=== PATIENT | female | born 1965 | race African-American/Black ===

== ENCOUNTER 2019-12-14 11:59 | Day surgery (SDC) | payer MEDICAID ==
[~2019-12-14] VITALS: Ht 157.5 cm; Wt 70.0 kg
[2019-12-14 12:34] VITALS: BP 121/77
[2019-12-14] MEDS ORDERED: ASPI-1497 PO (12:38)
[2019-12-14] MEDS ORDERED: GLYB5TAB7 PO (12:38)
[2019-12-14] MEDS ORDERED: SIMV-46 PO (12:38)
[2019-12-14] MEDS ORDERED: METF-414 PO (12:38)
[2019-12-14] MEDS ORDERED: BENA40TA9 PO (12:38)
[2019-12-14] MEDS ORDERED: ACETAZOLAMIDE SODIUM 500MG/VIAL IV ONE (13:15)
[2019-12-14 13:32] LABS: BASOPHILS % 0.7 % (0.0-2.0); EOSINOPHILS % 1.5 % (0.0-5.0); HEMATOCRIT. 39.7 % (36.0-48.0); HEMOGLOBIN. 13.6 g/dL (12.0-16.0); LYMPHOCYTES % 31.3 % (20.0-50.0); MEAN CORPUSCULAR HEMOGLOBIN 30.4 pg (28.0-32.0); MEAN CORPUSCULAR VOLUME 88.5 fL (81.0-99.0); MEAN PLATELET VOLUME 9.4 fl (7.4-10.4); MONOCYTES % 8.3 % (2.0-8.0); NEUTROPHILS % 58.2 % (40.0-76.0); PLATELET 264 x1000/uL (130-400); RED BLOOD CELL COUNT 4.49 mill/uL (4.2-5.4); RED CELL DISTRIBUTION WIDTH 14.5 % (11.6-14.6)
[2019-12-14 13:37] LABS: CHLORIDE 107 mEq/L (98-107)
[2019-12-14 13:38] LABS: PROTHROMBIN TIME 10.7 sec (9.6-11.0)
[2019-12-14] MEDS ORDERED: TRIAMCINOLONE ACETONIDE 40MG/ML 1ML VIAL ONE (13:42)
[2019-12-14] MEDS ORDERED: FENTANYL CITRATE/PF 50MCG/ML 2ML VIAL ONE (14:11)
[2019-12-14] MEDS ORDERED: MIDAZOLAM HCL 2 MG/2 ML VIAL ONE (14:11)
[2019-12-14] MEDS ORDERED: DIPHENHYDRAMINE 50MG/ML VIAL ONE (14:11)
[2019-12-14] MEDS ORDERED: SODIUM CHLORIDE 0.9% 10ML VIAL ONE ×2 (14:12→14:35)
[2019-12-14] MEDS ORDERED: CEFAZOLIN SODIUM 1000MG/VIAL ONE (14:12)
[2019-12-14] MEDS ORDERED: LIDOCAINE HCL/PF 1% 10 MG/ML 5ML VIAL ONE (14:12)
[2019-12-14] MEDS ORDERED: PROPOFOL 200MG/20ML VIAL IV ONE (14:12)
[2019-12-14] MEDS ORDERED: HYDRALAZINE 20MG/ML VIAL ONE (14:35)
[2019-12-14] MEDS ORDERED: HYDROMORPHONE HCL/PF 2MG/ML CPJ IV PRN (15:30)
== END 2019-12-14 16:30 | disposition home or self-care (01) ==
LOC: ER 11:59 → OR 12:40 → CANBEDREQ 20:38
PROVIDERS: ATTEND Ophthalmology
DX: H40.212 Acute angle-closure glaucoma, left eye (principal); E11.65 Type 2 diabetes mellitus with hyperglycemia; E78.00 Pure hypercholesterolemia, unspecified; I10 Essential (primary) hypertension; Z98.890 Other specified postprocedural states; Z79.899 Other long term (current) drug therapy; Z79.82 Long term (current) use of aspirin
CPT/HCPCS: 36415; 66180; 80053; 82962; 85025; 85610; 93005; 99284; C1783; J0360; J0690; J1120; J1200; J2250; J2704; J3010; J3301; J3490

== ENCOUNTER → 2020-04-05 | Outpatient (CLI) | payer MEDICAID ==
[~2020-04-05] MED LIST: ASPI-1497 PO; ATOR-2 PO; BENA40TA9 PO; ERGO2000 PO; GLIP5TAB12 PO; GLYB5TAB7 PO; METF-414 PO; SIMV-46 PO
== END | disposition home or self-care (01) ==
LOC: LAB 12:08
PROVIDERS: ATTEND Ophthalmology
DX: Z11.59 Encounter for screening for other viral diseases (principal)
CPT/HCPCS: U0003-CS

== ENCOUNTER → 2020-04-09 | Day surgery (SDC) | payer MEDICAID ==
[~2020-04-09] VITALS: Ht 157.5 cm; Wt 71.2 kg
[~2020-04-09] MED LIST changes: +BALANCED SALT IRRIG SOLN COMB1 500ML OP ONE; +CYCLOPENTOLATE HCL 1% OPHTH DROPS 2ML LEFTEYE ONE; +FENTANYL CITRATE/PF 50MCG/ML 2ML VIAL ONE; +HYALURONATE SODIUM 10 MG/ML 0.55ML SYRINGE IO ONE; +KETOROLAC 30MG/ML VIAL ONE; +LABETALOL HCL 5MG/ML VIAL 20ML IV ONE; +LIDOCAINE HCL/PF 1% 10 MG/ML 5ML VIAL ONE; +MIDAZOLAM HCL 2 MG/2 ML VIAL ONE; +PHENYLEPHRINE HCL 10% OPHTH DROPS 5ML LEFTEYE ONE; +PROPOFOL 200MG/20ML VIAL IV ONE; +SODIUM CHLORIDE 0.9% 1,000 ML IV SCH; +TROPICAMIDE 1% OPHTH DROPS 15ML LEFTEYE ONE; +TRYPAN BLUE 0.5 ML DISP.SYRIN IO ONE
== END | disposition home or self-care (01) ==
LOC: OR 06:05
PROVIDERS: ATTEND Ophthalmology
DX: E11.36 Type 2 diabetes mellitus with diabetic cataract (principal); H25.22 Age-related cataract, morgagnian type, left eye; H21.502 Unspecified adhesions of iris, left eye; E11.65 Type 2 diabetes mellitus with hyperglycemia; E11.3511 Type 2 diabetes mellitus with proliferative diabetic retinopathy with macular edema, right eye; I10 Essential (primary) hypertension; E55.9 Vitamin D deficiency, unspecified; Z79.82 Long term (current) use of aspirin; Z79.84 Long term (current) use of oral hypoglycemic drugs; Z79.899 Other long term (current) drug therapy; Z98.890 Other specified postprocedural states
CPT/HCPCS: 66982; 82962; 93005; J1885; J2250; J2704; J3010; J3490; Q9957; V2632